=== PATIENT | female | born 1965 | race African-American/Black ===

== ENCOUNTER 2019-09-29 04:42 | Emergency (ER) | payer OTHER ==
[~2019-09-29] VITALS: Ht 170.2 cm; Wt 117.9 kg
[2019-09-29 05:50] VITALS: BP 136/67
== END 2019-09-29 05:56 | disposition home or self-care (01) ==
LOC: ER 04:42
DX: H66.92 Otitis media, unspecified, left ear (principal); H61.22 Impacted cerumen, left ear